=== PATIENT | female | born 1965 | race Caucasian/White ===

== ENCOUNTER → 2023-09-18 14:44 | Outpatient (REF) | payer OTHER, SELFPAY | LOC: RAD 14:44 | PROVIDERS: ATTENDING PHYSICIAN Nurse Practitioner Family | DX: M25.511 Pain in right shoulder (principal) | CPT/HCPCS: 73030 ==

== ENCOUNTER → 2024-02-05 12:31 | Outpatient (REF) | payer OTHER, SELFPAY | LOC: WDC 12:31 | PROVIDERS: ATTENDING PHYSICIAN Nurse Practitioner Family | DX: Z12.31 Encounter for screening mammogram for malignant neoplasm of breast (principal) | CPT/HCPCS: 77063; 77067 ==

== ENCOUNTER 2024-03-11 17:40 | Outpatient (RCR) | payer OTHER, SELFPAY | END 2024-03-11 23:59 | disposition home or self-care (01) | LOC: RPT 17:40 | PROVIDERS: ATTENDING PHYSICIAN Pain Medicine Interventional Pain Medicine; FAMILY PHYSICIAN Family Medicine | DX: M54.12 Radiculopathy, cervical region (principal); Z73.6 Limitation of activities due to disability; M62.81 Muscle weakness (generalized); M62.838 Other muscle spasm | CPT/HCPCS: 97010; 97110; 97112; 97140; 97162 ==

== ENCOUNTER → 2024-12-30 12:33 | Outpatient (REF) | payer OTHER, SELFPAY | LOC: RAD 12:33 | PROVIDERS: ATTENDING PHYSICIAN Nurse Practitioner Family | DX: R10.84 Generalized abdominal pain (principal) | CPT/HCPCS: 74177; Q9967 ==

== ENCOUNTER 2025-01-09 10:47 | Outpatient (RCR) | payer OTHER, SELFPAY | END 2025-01-09 23:59 | disposition home or self-care (01) | LOC: RPT 10:47 | PROVIDERS: ATTENDING PHYSICIAN Nurse Practitioner Family | DX: M25.511 Pain in right shoulder (principal); Z73.6 Limitation of activities due to disability; M62.81 Muscle weakness (generalized); M81.0 Age-related osteoporosis without current pathological fracture | CPT/HCPCS: 97110; 97112; 97161 ==

== ENCOUNTER 2025-01-29 14:27 | Outpatient (RCR) | payer OTHER, SELFPAY | END 2025-01-30 11:20 | disposition home or self-care (01) | LOC: RPT 14:27 | PROVIDERS: ATTENDING PHYSICIAN Nurse Practitioner Family | DX: M25.511 Pain in right shoulder (principal); Z73.6 Limitation of activities due to disability; M62.81 Muscle weakness (generalized); M81.0 Age-related osteoporosis without current pathological fracture | CPT/HCPCS: 97530 ==

== ENCOUNTER → 2025-02-05 16:03 | Outpatient (REF) | payer OTHER, SELFPAY | LOC: WDC 16:03 | PROVIDERS: ATTENDING PHYSICIAN Nurse Practitioner Family; FAMILY PHYSICIAN Family Medicine | DX: Z12.31 Encounter for screening mammogram for malignant neoplasm of breast (principal) | CPT/HCPCS: 77063; 77067 ==